=== PATIENT | male | born 1960 | race Caucasian/White ===

== ENCOUNTER 2020-09-08 19:48 | Emergency (ER) | payer BC, OTHER ==
[2020-09-08 20:01] VITALS: BP 135/90; PULSE 100; TEMP 98.4; BMI 20.5
[2020-09-08] MEDS ORDERED: KETOROLAC TROMETHAMINE 30 MG/1 ML VIAL IM ONE (20:48)
[2020-09-08] MEDS ORDERED: KETOROLAC TROMETHAMINE 30 MG/1 ML VIAL ONE (20:50)
== END 2020-09-08 21:33 | disposition home or self-care (01) ==
LOC: JER 19:48
PROC: 3E0233Z Introduction of Anti-inflammatory into Muscle, Percutaneous Approach (ICD-10-PCS; principal; 2020-09-08)
DX: M54.5 Low back pain (principal)
CPT/HCPCS: 99284-25